=== PATIENT | female | born 1995 | race American Indian/Alaskan Native ===

== ENCOUNTER 2016-09-13 03:59 | Inpatient (IN) | payer MEDICAID ==
[2016-09-13] MEDS ORDERED: LACTATED RINGERS 1,000 ML ONE (04:21)
[2016-09-13] MEDS: LACTATED RINGERS 1,000 ML IV SCH ×4 (04:39→10:41)
[2016-09-13] MEDS ORDERED: POLYCILLIN/NS 2 GM/100 ML 2 GM/100 ML BAG IV ONE ×2 (08:50→08:55)
[2016-09-13 08:57] LABS: Hematocrit 43.4 % (30.3-42.9); Hemoglobin 14.5 gm/dl (10.1-14.3); Mean Corpuscular HGB Conc 33 % (30-34); Mean Corpuscular Hemoglobin 31 pg (28-32); Mean Corpuscular Volume 93 fl (79-97); Platelet Count 143 K/mm3 (140-440); Red Blood Count 4.67 M/mm3 (3.65-5.03); Red Cell Distribution Width 13.1 % (13.2-15.2); White Blood Count 16.3 K/mm3 (4.5-11.0)
[2016-09-13] MEDS ORDERED: PITOCin/NS 20 UNIT/1000ML DRIP 20 UNIT/1,000 ML BAG IV SCH (09:00)
[2016-09-13] MEDS ORDERED: SUBLIMAZE IV ONE (09:00)
[2016-09-13] MEDS ORDERED: PITOCin/NS 30 UNIT/500ML 30 UNIT/500 ML BAG IV SCH (09:00)
[2016-09-13] MEDS ORDERED: ePHEDrine SULFATE ONE (09:41)
[2016-09-13] MEDS ORDERED: fentaNYL-BUPIV 2 MCG/ML-0.125% 200 MCG/100 ML BAG EPIDURAL ONE (11:13)
[2016-09-13] MEDS ORDERED: NARCAN 2 MG/2 ML IV PRN (11:23)
[2016-09-13] MEDS ORDERED: ePHEDrine SULFATE IV PRN (11:23)
--- NOTE | 2016-09-13 11:23 | Anesthesia Consultation ---
Anesthesia Consult and Med Hx Date of service: 09/13/16 - Airway Anesthetic Teeth Evaluation: Good ROM Head & Neck: Adequate Mental/Hyoid Distance: Adequate Mallampati Class: Class II Intubation Access Assessment: Probably Good - Pre-Operative Health Status Proposed Anesthetic Plan: Epidural, Spinal - Pulmonary Hx Asthma: No - Cardiovascular System Hx Hypertension: No - Central Nervous System Hx Seizures: No Hx Psychiatric Problems: No - Endocrine Hx Renal Disease: No Hx Hypothyroidism: No Hx Hyperthyroidism: No - Hematic Hx Anemia: No Hx Sickle Cell Disease: No - Other Systems Hx Alcohol Use: No
[2016-09-13] MEDS ORDERED: fentaNYL-BUPIV 2 MCG/ML-0.125% 200 MCG/100 ML BAG EPIDURAL SCH (12:00)
[2016-09-13] MEDS ORDERED: MINERAL OIL ONE (14:10)
--- NOTE | 2016-09-13 14:46 | History and Physical Report ---
History of Present Illness Date of examination: 09/13/16 Date of admission: 09/13/16 07:54 Chief complaint: I'm in labor History of present illness: Patient is a 21 year old who presents to l&D with contractions since Monday , worse in frequency and intensity. EDC 09/15/2016. Patient has had an uncomplicated course. She is GBS positive Past History Past Medical History: no pertinent history Past Surgical History: no surgical history Family/Genetic History: none Social history: single - Obstetrical History Expected Date of Delivery: 09/15/16 Actual Gestation: 39 Week(s) 5 Day(s) : 1 Medications and Allergies Allergies Allergy/AdvReac Type Severity Reaction Status Date / Time No Known Allergies Allergy Verified 09/13/16 04:26 Active Meds: Active Medications Ephedrine Sulfate (Ephedrine Sulfate) 10 mg IV Q2M PRN PRN Reason: Hypotension Stop: 09/14/16 11:22 Lactated Ringer's (Lactated Ringers) 1,000 mls @ 125 mls/hr IV DIRECT RICHAR Last Admin: 09/13/16 10:41 Dose: 125 mls/hr Oxytocin/Sodium Chloride (Pitocin/Ns 20 Unit/1000ml Drip) 20 unit in 1,000 mls @ 125 mls/hr IV DIRECT RICHAR Oxytocin/Sodium Chloride (Pitocin/Ns 30 Unit/500ml) 30 unit in 500 mls @ 1 mls/ hr IV TITR RICHAR; 1 MILLIUNITS/MIN PRN Reason: Protocol Fentanyl/Bupivacaine/Sodium Chlor (Fentanyl-Bupiv 2 Mcg/Ml-0.125%) 200 mcg in 100 mls @ 12 mls/hr EPIDURAL TITR RICHAR PRN Reason: Protocol Naloxone HCl (Narcan 2 Mg/2 Ml) 0.2 mg IV Q5M PRN PRN Reason: Respiratory sedation Stop: 09/14/16 11:22 Review of Systems All systems: negative Genitourinary: pelvic pain, contractions - Vital Signs Vital signs: Vital Signs Temp Pulse Resp BP 98.2 F 88 18 136/80 09/13/16 04:11 09/13/16 04:11 09/13/16 04:11 09/13/16 04:11 Temp Pulse Resp BP Pulse Ox 98.0 F 87 18 134/75 100 09/13/16 12:16 09/13/16 14:38 09/13/16 11:15 09/13/16 14:38 09/13/16 12:40 - Physical Exam Breasts: Cardiovascular: Regular rate, Normal S1, Normal S2 Lungs: Positive: Clear to auscultation, Normal air movement Abdomen: Positive: normal appearance, soft, normal bowel sounds. Negative: distention, tenderness Genitourinary (Female): Positive: normal external genitalia, normal perenium Vulva: both: normal Vagina: Positive: normal moisture. Negative: discharge Cervix: Negative: lesion, discharge Uterus: Positive: normal size, normal contour Adnexa: both: normal Anus/Rectum: Positive: normal perianal skin, heme negative. Negative: rectal mass, hemorrhoids Extremities: Deep Tendon Reflex Grade: Normal +2 - Obstetrical FHR: auscultation normal Cervical Dilatation: 3 Cervical Effacement Percentage: 100 station: -2 Uterine Contraction Pattern: Regular Uterine Tone Measurement Phase: Resting Uterine Contraction Intensity: Moderate Results Result Diagrams: 09/13/16 08:40 Abnormal lab results 09/13/16 Range/Units 08:40 WBC 16.3 H (4.5-11.0) K/mm3 Hgb 14.5 H (10.1-14.3) gm/dl Hct 43.4 H (30.3-42.9) % RDW 13.1 L (13.2-15.2) % All other labs normal. Assessment and Plan IUP at 39.5 in active labor. Patient was having mild variables in triage. Will admit for labor and pitocin augmentation. Anticipate
[2016-09-13] MEDS ORDERED: PHENERGAN PR PRN (14:50)
[2016-09-13] MEDS ORDERED: DULCOLAX PR PRN (14:50)
[2016-09-13] MEDS ORDERED: PHENERGAN PO PRN (14:50)
[2016-09-13] MEDS ORDERED: ZOFRAN IV PRN (14:50)
[2016-09-13] MEDS ORDERED: BENADRYL PO PRN (14:50)
[2016-09-13] MEDS ORDERED: TYLENOL PO PRN (14:50)
[2016-09-13] MEDS ORDERED: MILK OF MAGNESIA PO PRN (14:50)
[2016-09-13] MEDS ORDERED: TUCKS PAD TP PRN (14:50)
[2016-09-13] MEDS ORDERED: DERMOPLAST TP PRN (14:50)
--- NOTE | 2016-09-13 14:50 | Procedure Note ---
OB Delivery Note - Delivery Date of Delivery: 09/13/16 Surgeon: ADRIEL NEAL Estimated blood loss: 100cc - Vaginal Delivery presentation: vertex Delivery position: OA Intrapartum events: none Delivery induction: none Delivery augmentation: rupture of membranes, pitocin Delivery monitor: external FHT, external uterine Route of delivery: Delivery placenta: spontaneous Delivery cord: nuchal cord, 3 umbilical vessels Episiotomy: none Delivery laceration: 2nd degree Delivery repair: chromic Anesthesia: epidural Delivery comments: Viable female delivered over intact perineum with loose nuchal x [address]ineum. place on maternal abdomen after delivery for skin to skin bonding. Delayed cord clamping. Placenta delivered spontaneously and intact with 3vc. Laceration repaired with 2.0 chromic. Excellent hemostasis. Patient tolerated procedure well.
[2016-09-13] MEDS ORDERED: SODIUM CHLORIDE FLUSH SYRINGE 10 ML IV SCH (15:00)
[2016-09-13] MEDS: MOTRIN PO SCH (16:58)
[2016-09-14] MEDS: MOTRIN PO SCH ×4 (01:47→23:57)
[2016-09-14] MEDS: NORCO 5/325 PO PRN ×3 (04:13→22:54)
[2016-09-14 04:14] LABS: Hematocrit 37.1 % (30.3-42.9); Hemoglobin 12.3 gm/dl (10.1-14.3)
[2016-09-14] MEDS ORDERED: BOOSTRIX IM ONE (06:00)
--- NOTE | 2016-09-14 09:33 | Progress Note ---
Assessment and Plan PPD 1 s/p . Doing well. Patient is and would like help with . Plan for discharge on tomorrow. Subjective - Subjective Date of service: 09/14/16 Interval history: Patient is a 21 year old who presents to l&D with contractions since Monday , worse in frequency and intensity. EDC 09/15/2016. Patient has had an uncomplicated course. She is GBS positive Patient reports: appetite normal, voiding normally, pain well controlled, ambulating normally : doing well Objective - Vital Signs Latest vital signs: Vital Signs Temp Pulse Pulse Resp BP BP BP 09/14/16 04:40 98.6 F 85 22 135/70 09/14/16 00:30 98.6 F 82 16 123/70 09/13/16 19:55 98.6 F 82 16 136/57 09/13/16 17:30 97.7 F 100 H 18 135/80 09/13/16 16:36 95 H 114/66 09/13/16 16:34 100 H 127/72 09/13/16 16:21 110 H 134/92 09/13/16 16:07 90 131/81 09/13/16 15:52 97 H 120/63 09/13/16 15:36 88 140/80 09/13/16 15:21 85 128/81 09/13/16 15:07 88 122/73 09/13/16 14:51 91 H 123/69 09/13/16 14:38 87 134/75 09/13/16 14:25 123/69 09/13/16 12:40 106 H 09/13/16 12:35 101 H 09/13/16 12:30 93 H 09/13/16 12:25 91 H 09/13/16 12:20 81 09/13/16 12:16 98.0 F 112/57 09/13/16 12:15 100 H 09/13/16 12:14 89 112/57 09/13/16 12:10 82 09/13/16 12:05 81 09/13/16 12:00 81 09/13/16 11:55 81 09/13/16 11:52 83 129/74 09/13/16 11:50 81 09/13/16 11:45 93 H 09/13/16 11:40 90 09/13/16 11:35 74 09/13/16 11:34 73 109/57 09/13/16 11:30 73 09/13/16 11:25 84 09/13/16 11:21 79 105/55 09/13/16 11:20 83 09/13/16 11:19 83 107/58 09/13/16 11:17 76 99/58 09/13/16 11:15 78 18 97/50 09/13/16 11:14 92 H 120/58 09/13/16 11:11 81 119/64 09/13/16 11:10 88 09/13/16 11:09 91 H 120/62 09/13/16 11:07 88 130/68 09/13/16 11:05 93 H 124/70 09/13/16 11:03 100 H 124/73 09/13/16 11:01 100 H 138/72 09/13/16 11:00 114 H 09/13/16 10:59 105 H 132/70 09/13/16 10:57 110 H 144/83 09/13/16 10:55 105 H 141/80 09/13/16 10:49 92 H 09/13/16 10:36 101 H 09/13/16 10:31 88 09/13/16 10:26 107 H 09/13/16 10:15 103 H 09/13/16 10:10 97 H 09/13/16 10:00 97 H 09/13/16 09:55 93 H Pulse Ox 09/14/16 04:40 09/14/16 00:30 09/13/16 19:55 09/13/16 17:30 09/13/16 16:36 09/13/16 16:34 09/13/16 16:21 09/13/16 16:07 09/13/16 15:52 09/13/16 15:36 09/13/16 15:21 09/13/16 15:07 09/13/16 14:51 09/13/16 14:38 09/13/16 14:25 09/13/16 12:40 100 09/13/16 12:35 100 09/13/16 12:30 100 09/13/16 12:25 100 09/13/16 12:20 100 09/13/16 12:16 09/13/16 12:15 09/13/16 12:14 09/13/16 12:10 09/13/16 12:05 100 09/13/16 12:00 09/13/16 11:55 09/13/16 11:52 09/13/16 11:50 09/13/16 11:45 09/13/16 11:40 09/13/16 11:35 09/13/16 11:34 09/13/16 11:30 09/13/16 11:25 09/13/16 11:21 09/13/16 11:20 100 09/13/16 11:19 09/13/16 11:17 09/13/16 11:15 100 09/13/16 11:14 09/13/16 11:11 09/13/16 11:10 99 09/13/16 11:09 09/13/16 11:07 09/13/16 11:05 09/13/16 11:03 09/13/16 11:01 09/13/16 11:00 09/13/16 10:59 09/13/16 10:57 09/13/16 10:55 09/13/16 10:49 09/13/16 10:36 09/13/16 10:31 09/13/16 10:26 09/13/16 10:15 09/13/16 10:10 100 09/13/16 10:00 09/13/16 09:55 99 Intake and Output 09/13/16 09/14/16 09/14/16 22:59 06:59 14:59 Intake Total 3620 242 Output Total 400 800 Balance 3220 -558 Intake: IV 3500 Lactated Ringers 1,000 ml 2000 @ 125 mls/hr IV DIRECT RICHAR Rx#:[id number] PITOCin/NS 20 UNIT/1000ML 1000 DRIP 20 unit In 1,000 ml @ 125 mls/hr IV DIRECT RICHAR Rx#:[id number] PITOCin/NS 30 UNIT/500ML 500 30 unit In 500 ml @ 1 MILLIUNITS/MIN 1 mls/hr IV TITR RICHAR Rx#:[id number] Oral 120 242 Output: Urine 400 800 Void 400 800 Other: Total, Intake Amount 120 2 Total, Output Amount 400 800 Voiding Method Toilet # Voids Indwelling Catheter 1 Void 1 - Exam Cardiovascular: Present: Regular rate, Normal S1, Normal S2 Lungs: Present: Clear to auscultation, Normal air movement Abdomen: Present: normal appearance, soft, normal bowel sounds Vulva: both: normal Uterus: Present: normal, firm, fundal height below umbilicus Extremities: Present: normal
--- NOTE | 2016-09-14 09:38 | Discharge Summary ---
Providers - Providers Date of Admission: 09/13/16 07:54 Date of discharge: 09/14/16 Attending physician: ADRIEL NEAL Primary care physician: ADRIEL NEAL Hospitalization Reason for admission: active labor Delivery: Episiotomy: none Laceration: 2nd degree Other procedures: none Discharge diagnosis: IUP at term delivered baby: female Condition at discharge: Good Disposition: DISCHARGED TO HOME OR SELFCARE Plan - Discharge Medications Prescriptions: HYDROcodone/APAP 5-325 [[place] 5-325 mg TAB] 2 each PO Q6H PRN #20 tablet PRN Reason: Pain, Moderate (4-6) Ibuprofen [Motrin 600 MG tab] 600 mg PO Q6HR #40 tablet - Provider Discharge Summary Activity: routine, no sex for 6 weeks, no heavy lifting 4 weeks, no strenuous exercise Diet: routine Instructions: routine Additional instructions: [] Smoking cessation referral if applicable(refer to patient education folder for contact #) [] Refer to [facility]'s [facility] Booklet Call your doctor immediately for: * Fever > 100.5 * Heavy vaginal bleeding ( >1 pad per hour) * Severe persistent headache * Shortness of breath * Reddened, hot, painful area to leg or breast * Drainage or odor from incision. * Keep incision clean and dry at all times and follow doctor's instructions regarding bathing/showering - Follow up plan Follow up: ADRIEL NEAL MD [Primary Care Provider] - 6 Weeks
[2016-09-14] MEDS: PRENATAL VITAMIN PO SCH (10:24)
[2016-09-14] MEDS: LANSINOH TP PRN ×2 (10:25→18:06)
[2016-09-14] MEDS: COLACE PO SCH ×2 (10:25→22:55)
--- NOTE | 2016-09-14 14:08 | Progress Note ---
Subjective Date of service: 09/14/16 Interval history: 1st day after normal vaginal delivery Patient is in the bed, comfortable. Pain is well under control. Ambulated normally. No residual neurological deficit. No anesthesia complications Objective - Constitutional Vitals: Vital Signs - 12hr 09/14/16 09/14/16 04:40 09:30 Temperature 98.6 F 98.2 F Pulse Rate [ 85 97 H From Monitor] Respiratory 22 20 Rate Blood Pressure 126/83 [Left Arm] Blood Pressure 135/70 [Right Arm] - Labs CBC & Chem 7: 09/14/16 03:17
[2016-09-14] MEDS ORDERED: M-M-R II VACCINE SUB-Q ONE (14:50)
[2016-09-15] MEDS: MOTRIN PO SCH ×2 (06:00→11:35)
[2016-09-15] MEDS: PRENATAL VITAMIN PO SCH (11:35)
[2016-09-15] MEDS: COLACE PO SCH (11:36)
[2016-09-15 15:44] VITALS: BP 131/68
== END 2016-09-15 15:50 | disposition home or self-care (01) | DRG 775 ==
LOC: TRG 03:59 → LD 07:54 → OB 17:52
PROVIDERS: ADMIT Obstetrics & Gynecology; ATTEND Obstetrics & Gynecology
PROC: 10E0XZZ Delivery of Products of Conception, External Approach (ICD-10-PCS; principal; 2016-09-13)
PROC: 0KQM0ZZ Repair Perineum Muscle, Open Approach (ICD-10-PCS; 2016-09-13)
PROC: 00HU33Z Insertion of Infusion Device into Spinal Canal, Percutaneous Approach (ICD-10-PCS; 2016-09-13)
PROC: 3E0R3CZ (ICD-10-PCS; 2016-09-13)
DX: O99.824 Streptococcus B carrier state complicating childbirth (principal); O69.81X0 Labor and delivery complicated by cord around neck, without compression, not applicable or unspecified; O70.1 Second degree perineal laceration during delivery; Z37.0 Single live birth; Z3A.39 39 weeks gestation of pregnancy
CPT/HCPCS: 36415; 85014; 85018; 85027; 86850; 86900; 86901; A6250; J0290; J2590; J3010; J7120